=== PATIENT | male | born 1985 | race Caucasian/White ===

== ENCOUNTER 2017-07-12 19:37 | Emergency (ER) | payer BC ==
[~2017-07-12] VITALS: Ht 188 cm; Wt 87.5 kg
[2017-07-12 19:59] LABS: ADD MIUA? NO; BILIRUBIN NEGATIVE; BLOOD NEGATIVE; COLOR COLORLESS ((YELLOW)); GLUCOSE (STRIP) NEGATIVE; KETONES NEGATIVE; LEUKOCYTES NEGATIVE; NITRITE NEGATIVE; PROTEIN (STRIP) NEGATIVE; SPECIFIC GRAVITY 1.002 (1.000-1.030); UCUL ADDED? NO; UROBILINOGEN 0.2 MG/DL (0.2-1.0)
[2017-07-12 20:28] LABS: HEMATOCRIT 40.5 % (38.0-50.0); MCH 28.6 PG (29.0-34.0); MCHC 34.6 G/DL (30.0-36.0); MCV 82.8 FL (86-99); MEAN PLAT.VOLUME 9.4 uM^3 (9.0-12.4); PLATELET COUNT 273 K/uL (156-360); RBC DIS.WIDTH-CV 12.5 % (11.8-14.6); RED BLOOD COUNT 4.89 M/uL (4.00-5.50); WHITE BLOOD COUNT 9.6 K/uL (4.1-10.2)
[2017-07-12 20:41] LABS: CHLORIDE 106 mEq/L (99-109); POTASSIUM 3.6 mEq/L (3.7-5.4); SODIUM 140 mEq/L (136-147)
[2017-07-12 20:43] LABS: GLUCOSE 126 mg/dL (70-99)
[2017-07-12 20:44] LABS: ANION GAP 9 MEQ/L (2-14)
[2017-07-12 20:45] LABS: TOTAL BILIRUBIN 0.4 mg/dL (0.0-1.0)
[2017-07-12 20:46] LABS: ALKALINE PHOSPHATASE 55 IU/L (3-129)
[2017-07-12 20:47] LABS: GFR ESTIMATE (CALCULATED) > 59 mL/min/
[2017-07-12 20:48] LABS: DIRECT BILIRUBIN 0.1 mg/dL (0.0-0.3); UREA NITROGEN (BUN) 13 mg/dL (9-23)
[2017-07-12 20:50] LABS: LIPASE 31 U/L (1.0-51.0)
[2017-07-12 22:20] VITALS: BP 159/85
== END 2017-07-12 22:20 | disposition home or self-care (01) ==
LOC: EME 19:37
PROVIDERS: Emergency Medicine
DX: R10.84 Generalized abdominal pain (principal); Z88.1 Allergy status to other antibiotic agents
CPT/HCPCS: 74176; 80048; 80076; 81003; 83690; 85027; 87086; 99281; 99284